=== PATIENT | female | born 1990 | race Caucasian/White ===

== ENCOUNTER 2016-10-24 21:49 | Emergency (ER) | payer OTHER ==
[~2016-10-24 21:49] MED LIST: IBUPROFEN800 M1 PO; MOTRIN800 MG PO; PERCOCET 5-3251 EACH PO; PERCOCET 5/3251 TAB PO; PRENATAL1 EACH PO; TYLENOL650 MG PO; VIT C 500 MG PO; [UNRECOGNIZED DRUG - OTHER] PO
== END 2016-10-24 21:50 ==
LOC: EDMED 21:49
DX: S06.0X0A Concussion without loss of consciousness, initial encounter (principal); S13.4XXA Sprain of ligaments of cervical spine, initial encounter; S39.012A Strain of muscle, fascia and tendon of lower back, initial encounter; W22.8XXA Striking against or struck by other objects, initial encounter; Y92.69 Other specified industrial and construction area as the place of occurrence of the external cause; Y99.0 Civilian activity done for income or pay